=== PATIENT | female | born 1935 | race Caucasian/White ===

== ENCOUNTER 2016-07-10 10:12 | Inpatient (IN) | payer MEDICARE, OTHER ==
--- OUTSIDE RECORDS SUMMARY | 2016-07-10 10:34 | XMS REPORT | Continuity of Care Document ---
:1935 Author Organization [facility] [place] [address] Care Team Providers Name Role Phone Phys, Not Primary Care Provider Unavailable Source Comments This disclosure is being made pursuant to the [employer] program and maynot contain all information available regarding this patient.[facility] Active Allergies and Adverse Reactions Allergen Noted Date Severity Reactions Comments Daliresp 10/18/2013 Other (See Comments) Levofloxacin 10/18/2013 Other (See Comments) Montelukast Sodium 10/18/2013 Other (See Comments) Medrol 10/18/2013 Other (See Comments) Other 10/18/2013 Other (See Comments) Prednisone 10/18/2013 Other (See Comments) Current Medications Be aware that medications may not be up to date as of this document. Alwaysverify current medications with the patient. Prescription Sig. Disp. Refills Start Date End Date Status B Take 5 mg by mouth. Active Enpncuw-X-Yfwgku-E-Min -FA (DIALYVITE 5000) 5 MG TABS Calcium Carbonate-Vit Chew 1 capsule by Active D-Min (CALTRATE 600+D mouth daily. PLUS) 600-800 MG-UNIT CHEW potassium chloride Take 10 mEq by Active (K-TAB, KLOR-CON) 10 mouth daily. MEQ tablet baclofen (LIORESAL) 10 Take 10 mg by mouth Active MG tablet daily. DHA-EPA-Vit Take 1 capsule by Active L8-S60-Slybu Acid mouth daily. (CARDIOVID PLUS) CAPS famotidine (PEPCID) 40 Take 40 mg by mouth Active MG tablet daily. fexofenadine (AC) Take 180 mg by Active 180 MG tablet mouth daily. albuterol (PROAIR HFA) Inhale 2 puffs into Active 108 (90 BASE) MCG/ACT the lungs every 4 inhaler (four) hours. budesonide-formoterol Inhale 2 puffs into Active (SYMBICORT) 160-4.5 the lungs every 2 MCG/ACT inhaler (two) hours. tiotropium (SPIRIVA Place 18 mcg into Active HANDIHALER) 18 MCG inhaler and inhale inhalation capsule daily. levothyroxine Take 100 mcg by Active (SYNTHROID, mouth daily. LEVOTHROID) 100 MCG tablet furosemide (LASIX) 20 Take 20 mg by mouth Active MG tablet daily. polyethylene glycol Take 17 g by mouth Active (MIRALAX) packet daily. losartan (COZAAR) 100 Take 100 mg by Active MG tablet mouth. sulfaSALAzine Take 500 mg by Active (AZULFIDINE) 500 MG mouth daily. tablet Multiple Vitamin Take 1 tablet by Active (MULTI-VITAMIN PO) mouth daily. FLBLYVN-ADPVPW-HLALWTK Take 1 tablet by Active E PO mouth 4 (four) times daily. oxygen Active diazepam (VALIUM) 5 MG Take 1 tablet by 1 tablet 0 10/12/2013 Active tablet mouth 30 (thirty) minutes pre-procedure for Anxiety. Psyllium (NATURAL Take 1 tablespoon Active PSYLLIUM SEED) 100 % by mouth daily. POWD Active Problems Problem Noted Date Abnormal findings on diagnostic imaging of abdomen 09/13/2013 Overview: Overview: Abnormal ABD CT [facility] Abdominal pain, left lower quadrant 09/13/2013 Overview: Overview: [facility] Anemia 09/13/2013 Overview: Overview: [facility] Blood in stool 09/13/2013 Overview: Overview: [facility] Symptoms involving digestive system 09/13/2013 Overview: Overview: [facility] Constipation 09/13/2013 Overview: Overview: [facility] Dyspepsia and disorder of function of stomach 09/13/2013 Overview: Overview: [facility] Malaise and fatigue 09/13/2013 Overview: Overview: [facility] History of peptic ulcer disease 09/13/2013 Overview: Overview: [facility] Stricture of artery (HCC) 09/13/2013 Overview: Overview: Stent placed 2006 [facility] Personal history of digestive disease 09/13/2013 Overview: Overview: GI bleed 2008 [facility] Special screening for malignant neoplasms, colon 09/13/2013 Overview: Overview: [facility] Ulcerative colitis (HCC) 09/13/2013 Overview: Overview: Diagnosed 2003 [facility] Abnormal loss of weight 09/13/2013 Overview: Overview: 40 lbs in past 2-4 years [facility] Social History Tobacco Use Types Packs/Day Years Used Date Former Smoker Last Filed Vital Signs Vital Sign Reading Time Taken Blood Pressure 122/74 09/13/2013 1:06 PM CDT Pulse 72 09/13/2013 1:08 PM CDT Temperature 36 C (96.8 F) 09/13/2013 1:02 PM CDT Respiratory Rate - - Height 1.575 m (5' 2") 09/13/2013 12:55 PM CDT Weight 39.463 kg (87 lb) 09/13/2013 12:55 PM CDT Body Mass Index 15.91 09/13/2013 12:55 PM CDT Oxygen Saturation - - Plan of Care Health Maintenance Due Date Last Done Comments Tetanus/Pertussis (1 - Tdap) 1956 Well Adult Visit 07/04/1987 Zoster Vaccine 60+ 1997 Bone Density 2002 Pneumococcal Low/Medium Risk 65+ (1 of 2 - PCV13) 2002 Influenza Immunization (#1) 2015 Results from Last 3 Months Not on file
--- OUTSIDE RECORDS SUMMARY | 2016-07-10 10:34 | XMS REPORT | Continuity of Care Document ---
:1935 Author Organization [facility] ([facility]) Address [address] [place] [address] Phone [phone] Care Team Providers Name Role Phone David Alvarado Primary Care Provider [phone] Source Comments This disclosure is being made pursuant to the Care Everywhere program, applicable federal and state laws, and may not contain all informaitonavailable regarding this patient.[facility] ([facility]) Active Allergies and Adverse Reactions Allergen Noted Date Severity Reactions Comments Clarithromycin Nausea & Vomiting Cortisone OTHER Affect changes dramatically Levofloxacin Nausea & Vomiting Methylprednisolone Angioedema grouchy Montelukast Loss of Consciousness,Respirat ory Distress Prednisone Agitation Current Medications Prescription Sig. Disp. Refills Start Date End Date Status furosemide (LASIX) 20 take 20 mg by mouth Active mg tablet daily. multivitamin (MULTIPLE take 1 Tab by mouth Active VITAMIN) tablet daily. acetaminophen (TYLENOL Take 1,000 mg by Active EXTRA STRENGTH) 500 mg mouth 4 times daily tablet as needed. CALCIUM Take 1 Tab by mouth Active CARBONATE/VITAMIN D3 daily. (CALCIUM 600 + D PO) pentoxifylline 400 mg Take 400 mg by mouth Active CR tablet 3 times daily with meals. pancrelipase (CREON Take 1 capsule by Active 6,000) 6,000-19,000 mouth 3 times daily -30,000 unit EC capsule with meals . potassium chloride Take 40 mEq by mouth Active (K-DUR, KLOR-CON M20) daily . 20 mEq tablet sucralfate 1 gram Take 1 g by mouth 4 Active tablet times daily. aspirin 81 mg tablet Take 81 mg by mouth Active at bedtime . [place]-3 Fatty Take 1,000 mg by Active Acids-Vitamin E (FISH mouth daily. OIL) 1,000 mg Cap budesonide-formoterol Use 2 Puffs by Active (SYMBICORT) 160-4.5 inhalation 2 times mcg/Actuation inhaler daily. tiotropium (SPIRIVA) 18 Use 18 mcg by Active mcg inhalation capsule inhalation daily. albuterol 90 Use 2 Puffs by Active mcg/Actuation inhaler inhalation every 6 hours as needed. zoledronic acid inject 5 mg Active (RECLAST) 5 mg/100 mL intravenously once. RTU injection Once a year in may fexofenadine 180 mg Take 180 mg by mouth Active tablet daily. famotidine 40 mg tablet Take 40 mg by mouth 05/02/2015 Active daily . SUPREP 17.5-3.13-1.6 04/09/2015 Active gram oral solution ALPRAZolam 0.25 mg Take 0.25 mg by mouth 1 02/19/2015 Active tablet as needed . ferrous sulfate 325 mg Take 65 mg by mouth 3 Active (65 mg iron) XR capsule times daily. gentamicin 0.1 % Apply topically as Active ointment needed. levothyroxine 100 mcg Take 100 mcg by mouth Active tablet every morning before breakfast. losartan 100 mg tablet Take 100 mg by mouth Active daily. psyllium (METAMUCIL SF) Take 3.4 g by mouth 2 Active powder times daily Dilute in at least 8 ounces of water . polyethylene glycol Take 17 g by mouth 2 Active 3350 (MIRALAX) 17 times daily. gram/dose powder oxygen O-15 (O-15 O2) Use 2-3 mCi by Active inhalation. 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 Chest pain 11/20/2011 COPD (chronic obstructive pulmonary disease) 07/30/2010 Chronic vascular insufficiency of intestine 12/02/2007 Chronic pancreatitis 01/04/2007 Abdominal pain, generalized 01/04/2007 Essential hypertension, benign 10/01/2005 Abdominal pain, epigastric 10/01/2005 Other specified disease of pancreas 07/11/2005 Immunizations Name Dates Previously Given Next Due Influenza, unspecified 11/16/2009,10/09/2005 Pneumococcal, unspecified 10/09/2005 Social History Tobacco Use Types Packs/Day Years Used Date Former Smoker Cigarettes 1 15 Quit: 02/16/1995 Smokeless Tobacco: Never Used Tobacco Cessation:Counseling Given: Yes Comments: Alcohol Use Drinks/Week oz/Week Comments No Last Filed Vital Signs Vital Sign Reading Time Taken Blood Pressure 190/99 05/07/2015 3:47 PM CDT Pulse 59 05/07/2015 3:47 PM CDT Temperature 36.5 C (97.7 F) 05/07/2015 2:13 PM CDT Respiratory Rate 28 06/01/2014 1:36 PM CDT Height 1.575 m (5' 2") 05/07/2015 2:13 PM CDT Weight 36.5 kg (80 lb 7.5 oz) 05/07/2015 2:13 PM CDT Body Mass Index 14.71 05/07/2015 2:13 PM CDT Oxygen Saturation 98% 10/21/2013 6:43 PM CDT Plan of Care Health Maintenance Due Date Last Done Comments Hepatitis B Vaccine (1 of 3 1935 - Primary Series) Tdap Vaccine 1948 Td Vaccine 07/04/1955 Mammogram 1977 Zoster Vaccine 1997 Osteoporosis Screening (DXA 2002 Bone Density) Pneumococcal Vaccine (1 of 2 2002 - PCV13) Lipid Disorder Screening 05/01/2014 05/01/2009, 05/25/2007, 01/25/2007 Influenza Vaccine: Seasonal 09/17/2015 11/16/2009, (#1) 10/09/2005 Colonoscopy 10/17/2018 10/17/2008, Additional history exists 09/12/2005, 08/20/2005 Results from Last 3 Months Not on file
--- NOTE | 2016-07-10 10:40 | ERNOTE ---
Dizziness ER Record Presenting Symptoms: other Time Seen by Provider: 07/10/16 10:12 Source: patient, family Exam Limitations: no limitations Allergies/Adverse Reactions: Allergies Allergy/AdvReac Type Severity Reaction Status Date / Time clarithromycin [From Biaxin] AdvReac Mild intolerance Verified 07/10/16 14:50 levofloxacin [From Levaquin] AdvReac Mild intolerance Verified 07/10/16 14:50 methylprednisolone AdvReac Mild intolerance Verified 07/10/16 14:50 [From Medrol] montelukast sodium AdvReac Mild intolerance Verified 07/10/16 14:50 [From Singulair] prednisone AdvReac Mild intolerance Verified 07/10/16 14:50 roflumilast [From Daliresp] AdvReac Mild emotional Verified 07/10/16 14:50 disturbances Home Medications: HOME MEDICATIONS Calcium Carbonate [Caltrate 600] 600 mg PO DAILY 12/31/11 [Last Taken 06/26/14 07:00 600mg] Furosemide 50 mg PO DAILY 12/31/11 [Last Taken 06/26/14 07:00 20mg] Levothyroxine Sodium [Synthroid] 75 mcg PO DAILY 12/31/11 [Last Taken 07/10/16] [place]ont-3/Dha/Epa/Fish Oil [[place]ont-3 Fish Oil 1,400 mg Sfgl] 1 each PO DAILY [Last Taken 06/26/14 07:00 1 capsule] Pentoxifylline [Trental] 400 mg PO TID 12/31/11 [Last Taken 07/10/16] Sucralfate [Carafate] 1 gm PO ACHS 12/31/11 [Last Taken 07/10/16] Zoledronic Acid/Mannitol/Water [Reclast 5 MG/100 ML Solution] 5 mg IV Q365D 29/01 [Last Taken 05/30/16] ALPRAZolam [Xanax] 0.25 mg PO TID 07/04/16 [Last Taken Unknown] Albuterol Sulfate [Albuterol Sulfate 2.5 MG/3 ML] 2.5 mg IH QID 07/04/16 [Last Taken Unknown] Albuterol Sulfate [Ventolin Hfa] 2 puff IH Q4H PRN 07/04/16 [Last Taken Unknown] Docusate Sodium [Colace] 100 mg PO BID 07/04/16 [Last Taken Unknown] Famotidine [Pepcid] 40 mg PO DAILY 07/04/16 [Last Taken Unknown] Lipase/Protease/Amylase [Tez Perkins 6,000 Units Capsule] 1 each PO ACHS 07/04/16 [ Last Taken 07/10/16] Multivitamins [Multivitamin John] 1 cap PO DAILY 07/04/16 [Last Taken Unknown] Nortriptyline HCl [Pamelor] 10 mg PO HS 07/04/16 [Last Taken 07/09/16] Potassium Chloride [Klor-Con 10] 20 meq PO BID 07/04/16 [Last Taken Unknown] Psyllium Husk (with Sugar) [Metamucil Powder] 1 tbs PO BID PRN 07/04/16 [Last Taken Unknown] Budesonide [Pulmicort Respules] 2 ml IH BID 07/10/16 [Last Taken Unknown] Formoterol Fumarate [Perforomist] 20 mcg IH BID 07/10/16 [Last Taken Unknown] - History of Present Illness Narrative: PAtient has not felt well in at least six month, she has a history of chronic abdominal pain that has been getting continuously worse. She has good and bad days, increasing fatigue, limited food intake as it increases her pain two eat. Yesterday she slept most of the days as she did not have a good night before. When she got up this morning she passed out every time she stood up, a total of three times, denies any chest pain, is comfortable currently with no complaints as long as she is laying down. In the ambulance her vital were normal laying supine (BP 118/76, HR 86) when standing up BP dropped to 80/palp, HR 85, blood sugar 73 Review of Systems - Review of Systems Constitutional: Present: fatigue, weight loss. Absent: fever, chills EYE: Absent: double vision ENT: Absent: sore throat Respiratory: Present: shortness of breath - at baseline, cough - chronic, with green sputum Cardiology: Absent: chest pain Gastrointestinal/Abdominal: Present: nausea, abdominal pain. Absent: vomiting, diarrhea Genitourinary: Present: no symptoms reported Skin: Absent: rash Neurological: Absent: headache - Patient's Past Medical History Patient History - Medical: Anemia, Hypothyroidism, Osteoporosis Patient History - Cardiac/Respiratory: COPD, Hypertension, Home O2 Use Patient History - Cancer: No Hx of Cancer Patient History - Surgical Procedures: Colonoscopy, Hysterectomy Patient History - Other: None - Family History Mother Family History - Medical: Family History - Cardiac/Respiratory: Myocardial Infarction Father Family History - Medical: - Social History Living Situations: home Abuse History: No History of abuse Psych History: No pertinent hx Smoking Status: Former smoker Alcohol Use: none Drug Use: none Physical Exam - Physical Exam General Appearance: Present: alert, no apparent distress, cachetic Eye Exam: Normal inspection: bilateral, PERRL: bilateral Ears, Nose, Throat: Present: normal pharynx Respiratory: Present: no respiratory distress, no accessory muscle use, lungs clear, decreased breath sounds Cardiovascular/Chest: Present: regular rate, rhythm, no murmur Gastrointestinal/Abdominal: Present: normal bowel sounds, nondistended, soft, tenderness - mid abdomen Extremity Exam: Present: no edema Neurological Exam: Present: alert, oriented, normal mood/affect Skin Exam: Present: normal color, warm/dry ED Progress - Results and Orders Patient's Lab Results:: I have reviewed the patient's lab results. - Vital Signs Patient's Vital Signs:: I have reviewed the patient's vital signs. - EKG EKG: NSR, other - LVH, poor quality study EKG read: Interp. by me - X-Ray X-Ray #1 X-Ray: chest - no focal findings Interpretation: Reviewed by me X-Ray #3 X-Ray: abdomen - stool retention, no other acute changes Interpretation: Reviewed by me - CT/Ultrasound CT/Ultrasound Narrative: CT head: no acute findings - Progress/Reassessment Progress Note-Subjective: 07/10/16 12:10 Patient comfortable, explained results per daughter patient had multiple medication changes on recent office visit on lorsartan was stopped, lasix and potassium increased patient was started on nortriptyline for nightly foot pain and started on an antibiotic (indication?) 07/10/16 12:05 patient still has significant blood pressure drop with standing up 07/10/16 13:[address] Alvarado, will admit to observation for persistent orthostatic hypotension, most likely caused by the nortriptyline, bactrim was started for bronchitis 07/10/16 13:52 discussed with patient and family Departure Clinical Impression: Orthostatic hypotension Syncope Qualifiers: Syncope type: unspecified Qualified Code(s): R55 - Syncope and collapse - Departure Disposition: [facility] Condition: Fair
[2016-07-10] MEDS ORDERED: NORMAL SALINE 1,000 ML IV ONE ×3 (10:43→14:03)
[2016-07-10 10:59] LABS: Hematocrit 36.6 % (37.0-47.0); Hemoglobin 11.4 gm/dL (12.5-16.0); Mean Cell Volume 87.6 fl (78-100); Mean Corpuscular Hemoglobin 27.3 pg (27-31); Mean Corpuscular Hgb Conc 31.1 g/dl (32-36); Mean Platelet Volume 10.5 fl (6.0-9.5); Neutrophil # 6.8 K/mm3 (1.3-6.0); Neutrophil % 86.3 % (42-75.0); Platelet Count 175 K/mm3 (150-450); Red Blood Count 4.18 M/mm3 (4.2-5.4); Red Cell Distribution Width 12.5 % (11.5-14.0); White Blood Count 7.8 K/mm3 (4.0-10.5)
[2016-07-10 11:06] LABS: Urine Bilirubin Negative (NEGATIVE); Urine Ketone Negative (NEGATIVE); Urine Nitrite Negative (NEGATIVE); Urine Protein Negative (NEGATIVE); Urine Specific Gravity 1.015 SP.GR. (1.005-1.010); Urine Urobilinogen Normal (NORMAL)
[2016-07-10 11:16] LABS: ALT 21 U/L (19-67); AST 28 U/L (0-48); Albumin * 3.7 gm/dl (3.4-5.0); Alkaline Phosphatase * 85 U/L (50-170); Amylase * 173 U/L (25-115); Anion Gap 4.9 mmol/L (6.8-13.8); BUN/Creatinine Ratio 22.4 (9.0-21.6); Bilirubin, Total 0.4 mg/dL (0.0-1.1); Blood Urea Nitrogen 17 mg/dL (3-23); Ca. Corrected For Albumin 9.4 mg/dL (8.4-10.2); Calcium * 9.5 mg/dL (7.9-10.9); Carbon Dioxide 41.8 mmol/L (24-32.6); Chloride 91 mmol/L (97-106); Glucose * 111 mg/dL (70-110); Lipase 217 U/L (73-393); Potassium 3.7 mmol/L (3.4-4.6); Sodium 134 mmol/L (132-142); Total Protein 7.1 gm/dL (6.2-8.2); Troponin I Less than 0.017 ng/ml (0.00-0.10)
[2016-07-10 11:17] LABS: Urine Appearance Clear; Urine Bacteria None Seen; Urine Blood 5 /ul (NEGATIVE); Urine Color Yellow; Urine RBC 0-5 /hpf (0-5); Urine WBC None Seen /hpf (0-5)
--- OUTSIDE RECORDS SUMMARY | 2016-07-10 13:58 | XMS REPORT | Continuity of Care Document ---
:1935 Author Organization [facility] ([facility]) Address [address] [place] [address] Phone [phone] Care Team Providers Name Role Phone David Alvarado Primary Care Provider [phone] Source Comments This disclosure is being made pursuant to the Care Everywhere program, applicable federal and state laws, and may not contain all informaitonavailable regarding this patient.[facility] ([facility]) Active Allergies and Adverse Reactions Allergen Noted [...] mg by mouth Active at bedtime . [place]-3 Fatty Take 1,000 mg by Active Acids-Vitamin [...]
--- OUTSIDE RECORDS SUMMARY | 2016-07-10 13:58 | XMS REPORT | Continuity of Care Document ---
:1935 Author Organization [employer] [place] [address] Care Team Providers Name Role Phone Phys, Not Primary Care Provider Unavailable Source Comments This disclosure is being made pursuant to the [employer] program and maynot contain all information available regarding this patient.[employer] Active Allergies and Adverse Reactions Allergen Noted [...] B Take 5 mg by mouth. Active Jgditso-R-Rhmuez-E-Min -FA (DIALYVITE 5000) 5 MG TABS Calcium Carbonate-Vit Chew 1 capsule by Active D-Min (CALTRATE 600+D mouth daily. PLUS) 600-800 MG-UNIT CHEW potassium chloride Take 10 mEq by Active (K-TAB, KLOR-CON) 10 mouth daily. MEQ tablet baclofen (LIORESAL) 10 Take 10 mg by mouth Active MG tablet daily. DHA-EPA-Vit Take 1 capsule by Active [id number] Acid mouth daily. (CARDIOVID PLUS) CAPS famotidine [...] tablet by Active (MULTI-VITAMIN PO) mouth daily. [id number]-[id number] Take 1 tablet by Active E PO [...] function of stomach 09/13/2013 Overview: Overview: [facility] Malaise and fatigue 09/13/2013 Overview: Overview: ED[facility] [...]
[2016-07-10] MEDS ORDERED: ALBUTEROL SULFATE 2.5 MG/3 ML VIAL.NEB IH PRN (14:19)
[2016-07-10] MEDS: ALBUTEROL SULFATE 2.5 MG/3 ML VIAL.NEB IH SCH ×3 (14:38→18:07)
[2016-07-10] MEDS: SUCRALFATE 1 G TABLET PO SCH ×2 (17:22→21:36)
[2016-07-10] MEDS: AMYLASE PO SCH ×2 (17:29→21:38)
[2016-07-10] MEDS: LIPASE PO SCH ×2 (17:29→21:38)
[2016-07-10] MEDS: PROTEASE PO SCH ×2 (17:29→21:38)
[2016-07-10] MEDS: TIOTROPIUM BROMIDE 5 CAP INHALER IH SCH ×2 (17:29→21:38)
[2016-07-10] MEDS: PENTOXIFYLLINE 400 MG TABLET.SA PO SCH (17:32)
[2016-07-10] MEDS: BUDESONIDE 0.5 MG/2 ML VIAL.NEB IH SCH (18:08)
[2016-07-10] MEDS: FORMOTEROL FUMARATE 20 MCG/2 ML VIAL IH SCH (18:08)
[2016-07-10] MEDS: ALPRAZolam 0.25 MG TABLET PO PRN (18:43)
--- NOTE | 2016-07-10 19:43 | HP ---
Chief Complaint - Chief Complaint Date of Service: 07/10/16 Time of Service: 19:30 Chief Complaint: Syncope History of Present Illness: PAtient has not felt well for years, but worse in at least the last six months, with chronic pancreas problems, abdominal atherosclerosis and end stage COPD as well as severe painful peripheral neuropathy. She has good and bad days, increasing fatigue, limited food intake, as it increases her pain two eat. Yesterday she slept most of the day as she did not have a good night before. When she got up this morning she passed out every time she stood up, a total of three times. She denies any chest pain, is comfortable currently in the [facility] ER with no complaints as long as she is lying down. In the ambulance her vitals were normal lying supine (BP 118/76, HR 86) when standing up BP dropped to 80/palp, HR 85, blood sugar 73. In the office recently, she was started on low dose nortriptyline for control of her painful peripheral neuropathy. She also has chronic venous insufficiency and pedal edema. She uses nasal canula supplemental O2 at home at all times. She now feels better with some IV fluids having been infused. - Patient's Past Medical History Patient History - Medical: Anemia, Hypothyroidism, Osteoporosis, Other - chronic pancrease problems. Patient History - Cardiac/Respiratory: COPD, Hypertension, Home O2 Use Patient History - Cancer: No Hx of Cancer Patient History - Surgical Procedures: Colonoscopy, Hysterectomy Patient History - Other: None - Family History Mother Family History - Medical: Family History - Cardiac/Respiratory: Myocardial Infarction Family History - Cancer: History Unknown Father Family History - Medical: Family History - Cardiac/Respiratory: No pertinent hx Family History - Cancer: History Unknown - Social History Living Situations: home Abuse History: No History of abuse Psych History: No pertinent hx Smoking Status: Former smoker Have you smoked in the past 12 months: No Do you dip or chew tobacco: No Patient requests Smoking Cessation Consult: No Initiate information on Smoking Cessation: No Alcohol Use: none Drug Use: none - Immunizations Immunizations Up to Date: Yes Hx Pneumococcal Vaccination: Yes History of Influenza Vaccine: Yes Review Of Systems (GEN) - Review of Systems Generalized/Overall Review: Present: Weakness, Malaise, Fatigue, Weight loss - chronic severe malnutrition with a BMI of 14 EENTM: Present: No Symptoms Reported Respiratory: Present: Shortness of Breath, Other - DANIEL Cardiac: Present: Edema - feet Abdominal: Present: Abdominal Pain Genitourinary: Present: No Symptoms Reported Musculoskeletal: Present: No Symptoms Reported Neurological: Present: Pre-existing Deficit - foot pain Skin: Present: No Symptoms Reported Endocrine: Present: Intolerance to Cold, Intolerance to Heat Misc: All systems neg except as marked Allergies/Adverse Reactions: Allergies Allergy/AdvReac Type Severity Reaction Status Date / Time clarithromycin [From Biaxin] AdvReac Mild intolerance Verified 07/10/16 14:50 levofloxacin [From Levaquin] AdvReac Mild intolerance Verified 07/10/16 14:50 methylprednisolone AdvReac Mild intolerance Verified 07/10/16 14:50 [From Medrol] montelukast sodium AdvReac Mild intolerance Verified 07/10/16 14:50 [From Singulair] prednisone AdvReac Mild intolerance Verified 07/10/16 14:50 roflumilast [From Daliresp] AdvReac Mild emotional Verified 07/10/16 14:50 disturbances Home Medications: HOME MEDICATIONS Calcium Carbonate [Caltrate 600] 600 mg PO DAILY 12/31/11 [Last Taken 06/26/14 07:00 600mg] Furosemide 50 mg PO DAILY 12/31/11 [Last Taken 06/26/14 07:00 20mg] Levothyroxine Sodium [Synthroid] 75 mcg PO DAILY 12/31/11 [Last Taken 07/10/16] [employer]-3/Dha/Epa/Fish Oil [[employer] Fish Oil 1,400 mg Sfgl] 1 each PO DAILY [Last Taken 06/26/14 07:00 1 capsule] Pentoxifylline [Trental] 400 mg PO TID 12/31/11 [Last Taken 07/10/16] Sucralfate [Carafate] 1 gm PO ACHS 12/31/11 [Last Taken 07/10/16] Zoledronic Acid/Mannitol/Water [Reclast 5 MG/100 ML Solution] 5 mg IV Q365D 29/01 [Last Taken 05/30/16] ALPRAZolam [Xanax] 0.25 mg PO TID 07/04/16 [Last Taken Unknown] Albuterol Sulfate [Albuterol Sulfate 2.5 MG/3 ML] 2.5 mg IH QID 07/04/16 [Last Taken Unknown] Albuterol Sulfate [Ventolin Hfa] 2 puff IH Q4H PRN 07/04/16 [Last Taken Unknown] Docusate Sodium [Colace] 100 mg PO BID 07/04/16 [Last Taken Unknown] Famotidine [Pepcid] 40 mg PO DAILY 07/04/16 [Last Taken Unknown] Lipase/Protease/Amylase [Creon Dr 6,000 Units Capsule] 1 each PO ACHS 07/04/16 [ Last Taken 07/10/16] Multivitamins [Multivitamin John] 1 cap PO DAILY 07/04/16 [Last Taken Unknown] Nortriptyline HCl [Pamelor] 10 mg PO HS 07/04/16 [Last Taken 07/09/16] Potassium Chloride [Klor-Con 10] 20 meq PO BID 07/04/16 [Last Taken Unknown] Psyllium Husk (with Sugar) [Metamucil Powder] 1 tbs PO BID PRN 07/04/16 [Last Taken Unknown] Budesonide [Pulmicort Respules] 2 ml IH BID 07/10/16 [Last Taken Unknown] Formoterol Fumarate [Perforomist] 20 mcg IH BID 07/10/16 [Last Taken Unknown] Exam - Exam Vital Signs: Vital Signs - Last Taken Selected Entries 07/10/16 07/10/16 07/10/16 15:16 18:07 18:08 Pulse Rate 72 73 Respiratory 22 H 20 20 Rate Blood Pressure 195/70 O2 Sat by Pulse 100 100 Oximetry Oxygen Delivery Nasal Cannula Nasal Cannula Method Oxygen Flow 1 1 Rate Constitutional: Present: Alert, Oriented x3, Cooperative, Well developed, No distress, Thin and frail, Looks Older than stated age ENT Exam: Present: normal ENT inspection, hearing grossly normal, pharynx normal , dry mucous membranes Eye Exam: bilateral eye: normal inspection, PERRL, EOMI Neck: Present: normal inspection Back Exam: Present: normal inspection Respiratory: Present: decreased breath sounds, other - tachypnea Cardiovascular/Chest: Present: tachycardia, edema - mild Abdomen: Present: Normal bowel sounds, soft, nondistended, no rebound tenderness , no hepatospenomegaly, tender Extremity: Present: normal range of motion, pedal edema Skin Exam: Present: no cyanosis, cool/dry Neurologic: Present: alert, oriented x 3 Appearance: Present: appropriate appearance, neat Eye contact: Present: cooperative, good eye contact Thoughts: Present: normal thought pattern Diagnostic Studies: Abnormal Lab Results 07/10/16 Range/Units 14:48 pCO2 57.9 H (32.0-45.0) mmHg HCO3 35.7 H (21.0-28.0) mmol/L Total CO2 37.5 H (19.0-24.0) mmol/L Base Excess 9.4 H (-2.0-3.0) mmol/L Laboratory Results WBC 7.8 K/mm3 (4.0-10.5) 07/10/16 10:47 RBC 4.18 M/mm3 (4.2-5.4) L 07/10/16 10:47 Hgb 11.4 gm/dL (12.5-16.0) L 07/10/16 10:47 Hct 36.6 % (37.0-47.0) L 07/10/16 10:47 MCV 87.6 fl (78-100) 07/10/16 10:47 MCH 27.3 pg (27-31) 07/10/16 10:47 MCHC 31.1 g/dl (32-36) L 07/10/16 10:47 RDW 12.5 % (11.5-14.0) 07/10/16 10:47 Plt Count 175 K/mm3 (150-450) 07/10/16 10:47 MPV 10.5 fl (6.0-9.5) H 07/10/16 10:47 Immature Gran % (Auto) 0.40 % (0.001-0.429) 07/10/16 10:47 Immature Gran # (Auto) 0.03 K/mm3 (0.000-0.0310) 07/10/16 10:47 Neutrophils % 86.3 % (42-75.0) H 07/10/16 10:47 Lymphocytes % 6.0 % (20-51) L 07/10/16 10:47 Monocytes % 6.6 % (0.0-9) 07/10/16 10:47 Eosinophils % 0.4 % (0.0-3.0) 07/10/16 10:47 Basophils % 0.3 % (0.0-1.0) 07/10/16 10:47 Nucleated RBC % 0.0 k/mm3 (0-1) 07/10/16 10:47 Neutrophils # 6.8 K/mm3 (1.3-6.0) H 07/10/16 10:47 Lymphocytes # 0.5 k/mm3 (1.5-3.5) L 07/10/16 10:47 Monocytes # 0.5 k/mm3 (0.0-1.0) 07/10/16 10:47 Eosinophils # 0.0 k/mm3 (0.0-0.7) 07/10/16 10:47 Absolute Basophils 0.0 k/mm3 (0.0-0.1) 07/10/16 10:47 pCO2 57.9 mmHg (32.0-45.0) H 07/10/16 14:48 pO2 83.7 mmHg (83.0-108.0) 07/10/16 14:48 HCO3 35.7 mmol/L (21.0-28.0) H 07/10/16 14:48 Total CO2 37.5 mmol/L (19.0-24.0) H 07/10/16 14:48 Base Excess 9.4 mmol/L (-2.0-3.0) H 07/10/16 14:48 ABG pH 7.41 (7.35-7.45) 07/10/16 14:48 ABG O2 Sat (Measured) 96.1 % (94.0-98.0) 07/10/16 14:48 Sodium 134 mmol/L (132-142) 07/10/16 10:47 Plasma Sodium 134 mmol/L (130-142) 07/10/16 10:47 Potassium 3.7 mmol/L (3.4-4.6) 07/10/16 10:47 Chloride 91 mmol/L (97-106) L 07/10/16 10:47 Carbon Dioxide 41.8 mmol/L (24-32.6) H 07/10/16 10:47 Anion Gap 4.9 mmol/L (6.8-13.8) L 07/10/16 10:47 BUN 17 mg/dL (3-23) 07/10/16 10:47 Creatinine 0.76 mg/dL (0.4-1.4) 07/10/16 10:47 Est GFR (Non-Af Amer) 78 mL/min (60-130) D 07/10/16 10:47 BUN/Creatinine Ratio 22.4 (9.0-21.6) H 07/10/16 10:47 Random Glucose 111 mg/dL (70-110) H 07/10/16 10:47 Lactic Acid, Venous 1.4 mmol/L (0.4-1.9) 07/10/16 10:47 Calcium 9.5 mg/dL (7.9-10.9) 07/10/16 10:47 Calcium Adj for Albumin 9.4 mg/dL (8.4-10.2) 07/10/16 10:47 Total Bilirubin 0.4 mg/dL (0.0-1.1) 07/10/16 10:47 AST 28 U/L (0-48) 07/10/16 10:47 ALT 21 U/L (19-67) 07/10/16 10:47 Alkaline Phosphatase 85 U/L (50-170) 07/10/16 10:47 Troponin I Less than 0.017 ng/ml (0.00-0.10) 07/10/16 10:47 Total Protein 7.1 gm/dL (6.2-8.2) 07/10/16 10:47 Albumin 3.7 gm/dl (3.4-5.0) 07/10/16 10:47 Amylase 173 U/L (25-115) H 07/10/16 10:47 Lipase 217 U/L (73-393) 07/10/16 10:47 Urine Color Yellow 07/10/16 10:56 Urine Appearance Clear 07/10/16 10:56 Urine pH 7.0 pH (5.0-7.0) 07/10/16 10:56 Ur Specific [place] 1.015 SP.GR. (1.005-1.010) 07/10/16 10:56 Urine Protein Negative mg/dL (NEGATIVE) 07/10/16 10:56 Urine Glucose (UA) Negative mg/dL (NEGATIVE) 07/10/16 10:56 Urine Ketones Negative mg/dL (NEGATIVE) 07/10/16 10:56 Urine Blood 5 /ul (NEGATIVE) H 07/10/16 10:56 Urine Nitrate Negative (NEGATIVE) 07/10/16 10:56 Urine Bilirubin Negative mg/dl (NEGATIVE) 07/10/16 10:56 Urine Urobilinogen Normal EU/dl (NORMAL) 07/10/16 10:56 Ur Leukocyte Esterase Negative /ul (NEGATIVE) 07/10/16 10:56 Urine RBC 0-5 /hpf (0-5) 07/10/16 10:56 Urine WBC None seen /hpf (0-5) 07/10/16 10:56 Ur Epithelial Cells None seen /hpf (0-5) 07/10/16 10:56 Urine Bacteria None seen (NONE) 07/10/16 10:56 Urine Culture Comments No culture indicated 07/10/16 10:56 Assessment/Plan - Narrative Narrative: coban, fluids, florinef, coban wrap, one midnight stay, stop the nortriptyline, cymbalta. - Assessment/Plan (1) Chronic abdominal pain Problem: Chronic (2) Chronic venous insufficiency Problem: Chronic (3) Peripheral neuropathic pain Problem: Chronic (4) End stage COPD Problem: Chronic (5) Chronic respiratory failure with hypoxia Problem: Chronic (6) Orthostatic hypotension Problem: Acute (7) Syncope Problem: Acute Qualifiers: Syncope type: unspecified Qualified Code(s): R55 - Syncope and collapse
[2016-07-10] MEDS ORDERED: FLUTICASONE/SALMETEROL 14 PUFF DISK.W.DEV IH SCH (21:00)
[2016-07-10] MEDS: PSYLLIUM SEED 1 PACKET PACKET PO SCH (21:36)
[2016-07-10] MEDS: POLYETHYLENE GLYCOL 3350 119 GM BTL PO SCH (21:36)
[2016-07-10] MEDS: DOCUSATE SODIUM 100 MG CAPSULE PO SCH (21:37)
[2016-07-10] MEDS: DULoxetine HCL 30 MG CAPSULE.SA PO SCH (21:37)
[2016-07-10] MEDS: FLUDROCORTISONE ACETATE 0.1 MG TABLET PO SCH (21:38)
[2016-07-11] MEDS: BUDESONIDE 0.5 MG/2 ML VIAL.NEB IH SCH ×2 (06:02→18:11)
[2016-07-11] MEDS: FORMOTEROL FUMARATE 20 MCG/2 ML VIAL IH SCH ×2 (06:02→18:10)
[2016-07-11] MEDS: ALBUTEROL SULFATE 2.5 MG/3 ML VIAL.NEB IH SCH ×4 (06:03→18:10)
[2016-07-11] MEDS ORDERED: LEVOTHYROXINE SODIUM 100 MCG TABLET PO SCH (07:00)
[2016-07-11] MEDS: SUCRALFATE 1 G TABLET PO SCH ×4 (07:08→20:18)
[2016-07-11] MEDS: LIPASE PO SCH ×4 (07:09→20:19)
[2016-07-11] MEDS: AMYLASE PO SCH ×4 (07:09→20:19)
[2016-07-11] MEDS: PROTEASE PO SCH ×4 (07:09→20:19)
[2016-07-11] MEDS: LEVOTHYROXINE SODIUM 75 MCG TABLET PO SCH (07:18)
[2016-07-11] MEDS ORDERED: LORATADINE 10 MG TABLET PO SCH (09:00)
[2016-07-11] MEDS ORDERED: FAMOTIDINE 20 MG TABLET PO SCH (09:00)
[2016-07-11] MEDS ORDERED: CALCIUM CARBONATE 500 MG TAB.CHEW PO SCH (09:00)
[2016-07-11] MEDS ORDERED: MULTIVITAMINS 1 CAP CAPSULE PO SCH (09:00)
[2016-07-11] MEDS ORDERED: OMEGA-3 FATTY ACIDS 1 CAP CAPSULE PO SCH (09:00)
[2016-07-11] MEDS: POLYETHYLENE GLYCOL 3350 119 GM BTL PO SCH ×2 (09:20→20:15)
[2016-07-11] MEDS: PSYLLIUM SEED 1 PACKET PACKET PO SCH ×2 (09:20→20:15)
[2016-07-11] MEDS: DOCUSATE SODIUM 100 MG CAPSULE PO SCH ×2 (09:20→20:15)
[2016-07-11] MEDS: TIOTROPIUM BROMIDE 5 CAP INHALER IH SCH (09:20)
[2016-07-11] MEDS: DULoxetine HCL 30 MG CAPSULE.SA PO SCH (09:24)
[2016-07-11] MEDS: FLUDROCORTISONE ACETATE 0.1 MG TABLET PO SCH ×2 (09:24→10:23)
[2016-07-11] MEDS: PENTOXIFYLLINE 400 MG TABLET.SA PO SCH ×3 (09:30→17:53)
[2016-07-11] MEDS: ALPRAZolam 0.25 MG TABLET PO PRN ×2 (09:34→21:48)
[2016-07-11] MEDS ORDERED: DEXTROSE 5%-NORMAL SALINE 1,000 ML IV PRN (13:46)
--- NOTE | 2016-07-11 17:38 | PN ---
Subjective - Date and Time Seen Date: 07/11/16 Time: 07:00 Subjective Narrative: Feels better. Had to take the right leg wrap off last night due to pain. Still SOB. Uses O2 at home. No syncope. Will observe till tomorrow. Objective - Review of Systems Generalized/Overall Review: Reports: Malaise EENTM: Reports: No Symptoms Reported Respiratory: Reports: Shortness of Breath Cardiac: Reports: No Symptoms Reported Abdominal: Reports: No Symptoms Reported Genitourinary Symptoms: Reports: No Symptoms Reported Musculoskeletal Complaints: Reports: No Symptoms Reported Neurological: Reports: No Symptoms Reported Skin: Reports: No Symptoms Reported Endocrine: Reports: No Symptoms Reported Misc: All systems neg except as marked - Vitals Vitals: Last Vital Signs Selected Entries 07/11/16 07/11/16 07/11/16 02:15 06:13 06:57 Temperature 36.9 C Temperature Temporal Artery Source Scan Pulse Rate 77 86 Pulse Rhythm Regular Pulse Strength Normal Respiratory 20 20 Rate Respiratory Normal Depth Respiratory Normal Effort Respiratory Normal Pattern Blood Pressure 192/84 198/85 Blood Pressure 120 Mean O2 Sat by Pulse 96 Oximetry Oxygen Delivery Nasal Cannula Nasal Cannula Method Oxygen Flow 1 2 Rate - Exam Constitutional: Present: Alert, Oriented x3, Cooperative, Well developed, No distress, Elderly, Thin and frail, Looks Older than stated age ENT Exam: Present: normal ENT inspection, dry mucous membranes Neck: Present: normal inspection Respiratory: Present: lungs clear, decreased breath sounds Cardiovascular/Chest: Present: regular rate, rhythm, no chest tenderness, no edema Abdomen: Present: Normal bowel sounds, soft, nontender, nondistended, no rebound tenderness, no hepatospenomegaly, no masses Extremity: Present: normal range of motion, normal inspection, no pedal edema Skin Exam: Present: normal color, warm/dry, no cyanosis Neurologic: Present: alert, oriented x 3 Appearance: Present: appropriate appearance, appropriate insight, neat, no memory impairment Eye contact: Present: cooperative, good eye contact, normal speech Thoughts: Present: normal thought pattern Assessment/Plan Plan Narrative: Adjust meds. Orthostatics. Possibly home tomorrow. - Problems/Diagnosis (1) Chronic abdominal pain Problem: Chronic (2) Chronic venous insufficiency Problem: Chronic (3) Peripheral neuropathic pain Problem: Chronic (4) End stage COPD Problem: Chronic (5) Chronic respiratory failure with hypoxia Problem: Chronic (6) Orthostatic hypotension Problem: Acute (7) Syncope Problem: Acute Qualifiers: Syncope type: unspecified Qualified Code(s): R55 - Syncope and collapse
[2016-07-11] MEDS ORDERED: CLONIDINE HCL 0.1 MG TABLET PO SCH (19:00)
[2016-07-11] MEDS ORDERED: METOPROLOL TARTRATE 1 MG/ML AMPUL IV ONE (23:37)
[2016-07-11] MEDS ORDERED: CLONIDINE HCL 0.2 MG TABLET PO SCH (23:45)
[2016-07-11] MEDS ORDERED: CLONIDINE HCL 0.1 MG TABLET ONE (23:49)
[2016-07-12] MEDS ORDERED: CLONIDINE HCL 0.1 MG TABLET PO SCH (00:15)
[2016-07-12 05:19] LABS: Hematocrit 31.9 % (37.0-47.0); Hemoglobin 10.3 gm/dL (12.5-16.0); Mean Cell Volume 83.5 fl (78-100); Mean Corpuscular Hgb Conc 32.3 g/dl (32-36); Mean Platelet Volume 10.5 fl (6.0-9.5); Neutrophil # 7.1 K/mm3 (1.3-6.0); Neutrophil % 89.7 % (42-75.0); Platelet Count 177 K/mm3 (150-450); Red Blood Count 3.82 M/mm3 (4.2-5.4); Red Cell Distribution Width 12.1 % (11.5-14.0); White Blood Count 7.9 K/mm3 (4.0-10.5)
[2016-07-12] MEDS: FORMOTEROL FUMARATE 20 MCG/2 ML VIAL IH SCH ×2 (05:38→06:22)
[2016-07-12] MEDS: BUDESONIDE 0.5 MG/2 ML VIAL.NEB IH SCH ×2 (05:38→06:22)
[2016-07-12 05:48] LABS: Albumin * 3.6 gm/dl (3.4-5.0); Anion Gap 6.9 mmol/L (6.8-13.8); Bilirubin, Total 0.6 mg/dL (0.0-1.1); Ca. Corrected For Albumin 8.9 mg/dL (8.4-10.2); Calcium * 8.9 mg/dL (7.9-10.9); Carbon Dioxide 37.4 mmol/L (24-32.6); Potassium 3.3 mmol/L (3.4-4.6); Total Protein 7.1 gm/dL (6.2-8.2)
[2016-07-12] MEDS: ALBUTEROL SULFATE 2.5 MG/3 ML VIAL.NEB IH SCH (06:21)
[2016-07-12] MEDS: SUCRALFATE 1 G TABLET PO SCH (06:46)
[2016-07-12] MEDS: LIPASE PO SCH (06:47)
[2016-07-12] MEDS: PROTEASE PO SCH (06:47)
[2016-07-12] MEDS: LEVOTHYROXINE SODIUM 75 MCG TABLET PO SCH (06:47)
[2016-07-12] MEDS: AMYLASE PO SCH (06:47)
[2016-07-12 07:46] VITALS: BP 216/99
[2016-07-12] MEDS ORDERED: PROCHLORPERAZINE EDISYLATE 5 MG/ML VIAL IV PRN (08:19)
[2016-07-12] MEDS ORDERED: LORazepam 2 MG/ML DISP.SYRIN IV ONE (08:19)
[2016-07-12] MEDS ORDERED: ONDANSETRON HCL/PF 2 MG/ML VIAL IV PRN (08:19)
[2016-07-12] MEDS ORDERED: ATROPINE SULFATE 150 DROP BTL SL PRN (08:19)
[2016-07-12] MEDS ORDERED: POLYVINYL ALCOHOL 150 DROP BTL EACHEYE PRN (08:19)
--- NOTE | 2016-07-12 08:25 | PN ---
<David Jensen - Last Filed: 07/12/16 10:04> Subjective Subjective Narrative: Patient appears terminal, hospice candidate, agree with comfort care, will proceed in that direction. I personally supervised all of our nurse practitioner hospitalist's care for this patient. Objective - Vitals Vitals: Last Vital Signs Temp 36.6 C 07/12/16 07:45 Pulse 80 07/12/16 07:45 Resp 20 07/12/16 07:45 BP 216/99 07/12/16 07:45 Pulse Ox 100 07/12/16 07:45 - Abnormal Lab Findings Abnormal Lab Findings: Abnormal Lab Results 07/11/16 07/11/16 07/12/16 Range/Units 19:27 21:37 05:14 RBC 3.82 L (4.2-5.4) M/mm3 Hgb 10.3 L (12.5-16.0) gm/dL Hct 31.9 L (37.0-47.0) % MPV 10.5 H (6.0-9.5) fl Neutrophils % 89.7 H (42-75.0) % Lymphocytes % 4.5 L (20-51) % Neutrophils # 7.1 H (1.3-6.0) K/mm3 Lymphocytes # 0.4 L (1.5-3.5) k/mm3 pCO2 64.9 H 53.6 H (32.0-45.0) mmHg pO2 133.9 H 39.5 L* (83.0-108.0) mmHg HCO3 31.3 H 28.2 H (21.0-28.0) mmol/L Total CO2 33.3 H 29.8 H (19.0-24.0) mmol/L Base Excess 3.5 H (-2.0-3.0) mmol/L ABG pH 7.30 L 7.34 L (7.35-7.45) ABG O2 Sat (Measured) 98.3 H 70.2 L (94.0-98.0) % Sodium (132-142) mmol/L Plasma Sodium (130-142) mmol/L Potassium (3.4-4.6) mmol/L Chloride (97-106) mmol/L Carbon Dioxide (24-32.6) mmol/L Est GFR (Non-Af Amer) (60-130) mL/min Random Glucose (70-110) mg/dL 07/12/16 Range/Units 05:14 RBC (4.2-5.4) M/mm3 Hgb (12.5-16.0) gm/dL Hct (37.0-47.0) % MPV (6.0-9.5) fl Neutrophils % (42-75.0) % Lymphocytes % (20-51) % Neutrophils # (1.3-6.0) K/mm3 Lymphocytes # (1.5-3.5) k/mm3 pCO2 (32.0-45.0) mmHg pO2 (83.0-108.0) mmHg HCO3 (21.0-28.0) mmol/L Total CO2 (19.0-24.0) mmol/L Base Excess (-2.0-3.0) mmol/L ABG pH (7.35-7.45) ABG O2 Sat (Measured) (94.0-98.0) % Sodium 126 L (132-142) mmol/L Plasma Sodium 127 L (130-142) mmol/L Potassium 3.3 L (3.4-4.6) mmol/L Chloride 85 L (97-106) mmol/L Carbon Dioxide 37.4 H (24-32.6) mmol/L Est GFR (Non-Af Amer) 155 H D (60-130) mL/min Random Glucose 139 H (70-110) mg/dL Assessment/Plan - Problems/Diagnosis (1) Chronic abdominal pain Problem: Chronic (2) Chronic venous insufficiency Problem: Chronic (3) Peripheral neuropathic pain Problem: Chronic (4) End stage COPD Problem: Chronic (5) Chronic respiratory failure with hypoxia Problem: Chronic (6) Orthostatic hypotension Problem: Acute (7) Syncope Problem: Acute QualifierTitle: Syncope type: unspecified Qualified Code(s): R55 - Syncope and collapse <Rosanne Laguna - Last Filed: 07/12/16 13:23> Subjective - Date and Time Seen Date: 07/12/16 Time: 08:24 Subjective Narrative: c/o feeling restless, unable to sleep last night. does not want bipap. when I personally asked the patient if she was done with medical tests and just wanted to be made comfortable, the patient replied yes to me. Objective - Review of Systems Generalized/Overall Review: Reports: Malaise - c/o restlessness EENTM: Reports: No Symptoms Reported Respiratory: Reports: No Symptoms Reported Cardiac: Reports: No Symptoms Reported Abdominal: Reports: No Symptoms Reported Genitourinary Symptoms: Reports: No Symptoms Reported Musculoskeletal Complaints: Reports: No Symptoms Reported Neurological: Reports: No Symptoms Reported Skin: Reports: No Symptoms Reported Endocrine: Reports: No Symptoms Reported Misc: All systems neg except as marked - Vitals Vitals: Last Vital Signs Temp 36.6 C 07/12/16 07:45 Pulse 80 07/12/16 07:45 Resp 20 07/12/16 07:45 BP 216/99 07/12/16 07:45 Pulse Ox 100 07/12/16 07:45 - Abnormal Lab Findings Abnormal Lab Findings: Abnormal Lab Results 07/11/16 07/11/16 07/12/16 Range/Units 19:27 21:37 05:14 RBC 3.82 L (4.2-5.4) M/mm3 Hgb 10.3 L (12.5-16.0) gm/dL Hct 31.9 L (37.0-47.0) % MPV 10.5 H (6.0-9.5) fl Neutrophils % 89.7 H (42-75.0) % Lymphocytes % 4.5 L (20-51) % Neutrophils # 7.1 H (1.3-6.0) K/mm3 Lymphocytes # 0.4 L (1.5-3.5) k/mm3 pCO2 64.9 H 53.6 H (32.0-45.0) mmHg pO2 133.9 H 39.5 L* (83.0-108.0) mmHg HCO3 31.3 H 28.2 H (21.0-28.0) mmol/L Total CO2 33.3 H 29.8 H (19.0-24.0) mmol/L Base Excess 3.5 H (-2.0-3.0) mmol/L ABG pH 7.30 L 7.34 L (7.35-7.45) ABG O2 Sat (Measured) 98.3 H 70.2 L (94.0-98.0) % Sodium (132-142) mmol/L Plasma Sodium (130-142) mmol/L Potassium (3.4-4.6) mmol/L Chloride (97-106) mmol/L Carbon Dioxide (24-32.6) mmol/L Est GFR (Non-Af Amer) (60-130) mL/min Random Glucose (70-110) mg/dL 07/12/16 Range/Units 05:14 RBC (4.2-5.4) M/mm3 Hgb (12.5-16.0) gm/dL Hct (37.0-47.0) % MPV (6.0-9.5) fl Neutrophils % (42-75.0) % Lymphocytes % (20-51) % Neutrophils # (1.3-6.0) K/mm3 Lymphocytes # (1.5-3.5) k/mm3 pCO2 (32.0-45.0) mmHg pO2 (83.0-108.0) mmHg HCO3 (21.0-28.0) mmol/L Total CO2 (19.0-24.0) mmol/L Base Excess (-2.0-3.0) mmol/L ABG pH (7.35-7.45) ABG O2 Sat (Measured) (94.0-98.0) % Sodium 126 L (132-142) mmol/L Plasma Sodium 127 L (130-142) mmol/L Potassium 3.3 L (3.4-4.6) mmol/L Chloride 85 L (97-106) mmol/L Carbon Dioxide 37.4 H (24-32.6) mmol/L Est GFR (Non-Af Amer) 155 H D (60-130) mL/min Random Glucose 139 H (70-110) mg/dL - Exam Constitutional: Present: Cooperative, Lethargic Neck: Present: supple Breasts: Present: Exam deferred Respiratory: Present: decreased breath sounds, rhonchi Cardiovascular/Chest: Present: regular rate, rhythm, no chest tenderness Abdomen: Present: soft, nondistended /Rectal: Present: Exam deferred Skin Exam: Present: no cyanosis, cool/dry Assessment/Plan Plan Narrative: pt is retaining more CO2 but refuses to wear bipap. Na+ now low. patient herself has verbalized her wish for hospice / comfort care. also spoke with and 3 daughters - all of which also verbalized their wish for comfort cares. will add hospice consult. - Problems/Diagnosis (1) End of life care Problem: Acute (2) Orthostatic hypotension Problem: Acute (3) Syncope Problem: Acute Qualifiers: Syncope type: unspecified Qualified Code(s): R55 - Syncope and collapse (4) Chronic abdominal pain Problem: Chronic (5) Chronic respiratory failure with hypoxia Problem: Chronic (6) Chronic venous insufficiency Problem: Chronic (7) End stage COPD Problem: Chronic (8) Peripheral neuropathic pain Problem: Chronic
[2016-07-12] MEDS: HYDROmorphone HCL 1 MG/ML DISP.SYRIN IV PRN ×3 (08:55→16:55)
[2016-07-12] MEDS ORDERED: CHOLECALCIFEROL 5,000 UNIT TABLET PO SCH (09:00)
[2016-07-12] MEDS ORDERED: LOSARTAN POTASSIUM 50 MG TABLET PO SCH (09:00)
[2016-07-12] MEDS: HYDROPHILIC OINTMENT 454 APPL JAR TP SCH ×2 (10:28→22:33)
[2016-07-12] MEDS: LORazepam 2 MG/ML DISP.SYRIN IV PRN ×3 (12:41→23:32)
[2016-07-13] MEDS: HYDROmorphone HCL 1 MG/ML DISP.SYRIN IV PRN ×4 (00:57→12:29)
[2016-07-13] MEDS: LORazepam 2 MG/ML DISP.SYRIN IV PRN ×2 (05:36→12:29)
[2016-07-13] MEDS: HYDROPHILIC OINTMENT 454 APPL JAR TP SCH ×2 (09:28→21:15)
--- NOTE | 2016-07-13 09:51 | PN ---
<Rosanne Laguna - Last Filed: 07/13/16 09:46> Subjective - Date and Time Seen Date: 07/13/16 Time: 09:46 Subjective Narrative: not responsive. repeated periods of apenic episodes. no distress. family at bedside. on comfort cares. Objective - Review of Systems Generalized/Overall Review: Reports: No Symptoms Reported - unable to obtain due to patient's condition - Vitals Vitals: Last Vital Signs Temp 36.6 C 07/12/16 07:45 Pulse 80 07/12/16 07:45 Resp 20 07/12/16 07:45 BP 216/99 07/12/16 07:45 Pulse Ox 100 07/12/16 07:45 - Exam Constitutional: Present: Other - not responsive Breasts: Present: Exam deferred Respiratory: Present: no respiratory distress Cardiovascular/Chest: Present: regular rate, rhythm Extremity: Present: other - bilat lower legs mottled Skin Exam: Present: cool/dry, mottled - bilat legs Assessment/Plan Plan Narrative: unresponsive. continue comfort cares. reassurance provided to family. - Problems/Diagnosis (1) End of life care Problem: Acute (2) Orthostatic hypotension Problem: Acute (3) Syncope Problem: Acute QualifierTitle: Syncope type: unspecified Qualified Code(s): R55 - Syncope and collapse (4) Chronic abdominal pain Problem: Chronic (5) Chronic respiratory failure with hypoxia Problem: Chronic (6) Chronic venous insufficiency Problem: Chronic (7) End stage COPD Problem: Chronic (8) Peripheral neuropathic pain Problem: Chronic <David Jensen - Last Filed: 07/13/16 15:56> Subjective Subjective Narrative: I directly supervised all of Rosanne's care and agree. Objective - Vitals Vitals: Last Vital Signs Temp 36.6 C 07/12/16 07:45 Pulse 80 07/12/16 07:45 Resp 20 07/12/16 07:45 BP 216/99 07/12/16 07:45 Pulse Ox 100 07/12/16 07:45 Assessment/Plan - Problems/Diagnosis (1) Chronic abdominal pain Problem: Chronic (2) Chronic venous insufficiency Problem: Chronic (3) Peripheral neuropathic pain Problem: Chronic (4) End stage COPD Problem: Chronic (5) Chronic respiratory failure with hypoxia Problem: Chronic (6) Orthostatic hypotension Problem: Acute (7) Syncope Problem: Acute Qualifiers: Syncope type: unspecified Qualified Code(s): R55 - Syncope and collapse
[2016-07-13] MEDS ORDERED: fentaNYL 50 MCG PATCH.TD72 TD SCH (12:45)
[2016-07-13] MEDS: LORazepam 1 MG TABLET PO PRN ×3 (15:07→21:09)
[2016-07-13] MEDS: MORPHINE SULFATE 10 MG/0.5 ML SYRINGE PO PRN ×3 (15:07→21:14)
--- NOTE | 2016-07-13 15:55 | PN ---
Subjective - Date and Time Seen Date: 07/13/16 Time: 15:53 Subjective Narrative: Patient appears terminal, hospice candidate, agree with comfort care, will continue in that direction. I personally supervised all of our nurse practitioner hospitalist's care for this patient. Objective - Review of Systems Generalized/Overall Review: Reports: Weakness, Malaise EENTM: Reports: No Symptoms Reported Respiratory: Reports: Shortness of Breath Cardiac: Reports: No Symptoms Reported Abdominal: Reports: No Symptoms Reported Genitourinary Symptoms: Reports: No Symptoms Reported Musculoskeletal Complaints: Reports: No Symptoms Reported Neurological: Reports: No Symptoms Reported Skin: Reports: No Symptoms Reported Endocrine: Reports: No Symptoms Reported Misc: All systems neg except as marked - Vitals Vitals: Last Vital Signs - Exam Constitutional: Present: Lethargic, Somnolent, Obtunded ENT Exam: Present: normal ENT inspection Neck: Present: normal inspection Respiratory: Present: decreased breath sounds, expiration (prolonged) Cardiovascular/Chest: Present: tachycardia Abdomen: Present: Normal bowel sounds, soft, nondistended Extremity: Present: no pedal edema Skin Exam: Present: no cyanosis, cool/dry Neurologic: Present: other Assessment/Plan Plan Narrative: Terminal hospice care. - Problems/Diagnosis (1) Chronic abdominal pain Problem: Chronic (2) Chronic venous insufficiency Problem: Chronic (3) Peripheral neuropathic pain Problem: Chronic (4) End stage COPD Problem: Chronic (5) Chronic respiratory failure with hypoxia Problem: Chronic (6) Orthostatic hypotension Problem: Acute (7) Syncope Problem: Acute Qualifiers: Syncope type: unspecified Qualified Code(s): R55 - Syncope and collapse
[2016-07-14] MEDS: LORazepam 1 MG TABLET PO PRN ×2 (00:06→03:01)
[2016-07-14] MEDS: MORPHINE SULFATE 10 MG/0.5 ML SYRINGE PO PRN ×2 (00:08→03:02)
--- NOTE | 2016-07-14 05:52 | DS ---
<UgoBreanne - Last Filed: 07/14/16 05:52> Discharge Summary - Provider Primary Care Provider: David Jensen Admitting Clinician: David Jensen Pronouncing Clinician: Breanne Arizmendi - Date and Time Date of : 07/14/16 Time of : 04:45 - Diagnosis/Cause of (1) Chronic respiratory failure with hypoxia Problems: Chronic (2) End stage COPD Problems: Chronic - Summary Procedures Performed: none - Additional Data Confirmation of as documented by pronouncing clinician: no pulse, no respirations, no heart sounds, pupils fixed and dilated Family: at bedside Attending/PCP notified: Yes Was code activated: No Autopsy requested: No Tank Driver notified: No [employer] notified: Yes Advance Directives: Yes Hospice patient: Yes <David Jensen - Last Filed: 07/14/16 17:56> Discharge Summary - Diagnosis/Cause of (1) Chronic abdominal pain Problems: Chronic (2) Chronic venous insufficiency Problems: Chronic (3) Peripheral neuropathic pain Problems: Chronic (4) End stage COPD Problems: Chronic (5) Chronic respiratory failure with hypoxia Problems: Chronic (6) Orthostatic hypotension Problems: Acute (7) Syncope Problems: Acute - Summary Details (narrative): Slowly moved into CO2 narcosis and with comfort care protocol. I directly supervised our nurse practitioner hospitalist's care for this patient.
[2017-05-16] MEDS ORDERED: WATER IV SCH (07:00)
[2017-05-16] MEDS ORDERED: ZOLEDRONIC ACID IV SCH (07:00)
[2017-05-16] MEDS ORDERED: MANNITOL IV SCH (07:00)
== END 2016-07-14 06:41 | disposition expired | DRG 312 ==
LOC: ER 10:12 → MS 13:51 → OBSVTOIN 07-11 13:46 → MS 07-12 10:42
PROVIDERS: ADMIT Allergy & Immunology; ATTEND Allergy & Immunology
DX: I95.1 Orthostatic hypotension (principal); J96.11 Chronic respiratory failure with hypoxia; R06.89 Other abnormalities of breathing; R55 Syncope and collapse; J44.9 Chronic obstructive pulmonary disease, unspecified; G62.9 Polyneuropathy, unspecified; R10.9 Unspecified abdominal pain; Z51.5 Encounter for palliative care
CPT/HCPCS: 36415; 36600; 70450; 71010; 74020; 80053; 81001; 82150; 82803; 83605; 83690; 84484; 85025; 93005; 94640; 94660; 99284; G0378